=== PATIENT | female | born 1950 | race Caucasian/White ===

== ENCOUNTER 2018-08-25 12:43 | Emergency (ER) | payer MEDICARE, OTHER ==
[~2018-08-25] VITALS: Ht 162.6 cm; Wt 92.1 kg
[~2018-08-25 12:43] MED LIST: ALBU90OI INH; AMPI500 PO; Alph-E-Mixed400 UNIT PO; Augmentin 875-1 EACH PO; Bentyl10 MG PO; CALCIT950; CHOL10002 PO; CHRO200; CIPR500 PO; CODACE30 PO; CYCL10 PO; Calcium 600 MG1 EACH PO; DULO30 PO; FISH1000 PO; GABA300 PO; HYDACE5 PO; HYDACE5325 PO; HYDCHL12.5 PO; IBUP800 PO; IRON325 MG PO; Kristalose20 GM PO; LEVSOD150 PO; LEVSOD175 PO; LEVSOD88 PO; LOPE2C PO; META800 PO; METPRE4DP PO; MULVITMINE; NAPR375 PO; NAPR500 PO; Naprosyn500 MG PO; Norco 10-325 T1 EACH PO; Norco 5-325 Ta1 EACH PO; OXYACE5T PO; Omeprazole20 M1 PO; POTASSIUM; PRAZ2 PO; PROM25 PO; Prednisone20 MG PO; Prilosec Otc20 MG PO; SERT50 PO; SILVADENE CREAM; SULTRIDS PO; TRAZ50 PO; VENL25 PO; VENL75 PO; Valium5 MG PO; Ventolin5 MG/1 ML; [UNRECOGNIZED DRUG - OTHER]
[2018-08-25] MEDS ORDERED: Hydrocodone-Ap1 EA20 PO (13:04)
[2018-08-25] MEDS ORDERED: HYDPAM50 PO (13:04)
[2018-08-25] MEDS ORDERED: DOXE10 PO (13:04)
[2018-08-25] MEDS ORDERED: LEVO-T112 MCG (13:04)
== END 2018-08-25 15:16 | disposition home or self-care (01) ==
LOC: ER 12:43
DX: S09.90XA Unspecified injury of head, initial encounter (principal); S00.83XA Contusion of other part of head, initial encounter; S80.212A Abrasion, left knee, initial encounter; M79.674 Pain in right toe(s); E03.9 Hypothyroidism, unspecified; Z79.899 Other long term (current) drug therapy; Z23 Encounter for immunization; W01.0XXA Fall on same level from slipping, tripping and stumbling without subsequent striking against object, initial encounter
CPT/HCPCS: 29130; 70450; 70486; 72125; 73140; 73564; 73660; 90471; 90714; 99284-25

== ENCOUNTER → 2018-12-19 | Outpatient (CLI) | payer MEDICARE, OTHER ==
[~2018-12-19] MED LIST changes: +DOXE10 PO; +HYDPAM50 PO; +Hydrocodone-Ap1 EA20 PO; +LEVO-T112 MCG
== END ==
LOC: LAB SHORT 17:47 → LAB EV 17:47
DX: N39.0 Urinary tract infection, site not specified (principal)
CPT/HCPCS: 87077; 87086; 87186

== ENCOUNTER → 2019-03-06 | Outpatient (CLI) | payer MEDICARE, OTHER ==
[2019-03-06 18:51] LABS: BASOPHILS ABSOLUTE AUTO 0.03 K/mm3 (0.00-0.23); BASOPHILS PERCENT AUTO 1 % (0-2); EOSINOPHILS ABSOLUTE AUTO 0.11 K/mm3 (0.00-0.68); EOSINOPHILS PERCENT AUTO 2 % (0-6); Hematocrit 36.8 % (33.0-51.0); Hemoglobin 11.4 g/dL (11.5-16.0); IMMATURE GRAN ABSOLUTE AUTO 0.01 K/mm3 (0.00-0.10); IMMATURE GRAN PERCENT AUTO 0 % (0-1); LYMPHOCYTES ABSOLUTE AUTO 1.67 K/mm3 (0.84-5.20); LYMPHOCYTES PERCENT AUTO 32 % (21-46); MONOCYTES ABSOLUTE AUTO 0.44 K/mm3 (0.16-1.47); MONOCYTES PERCENT AUTO 8 % (4-13); Mean Corpuscular HGB 24.4 pg (26.0-34.0); Mean Corpuscular Volume 79 fL (80-100); Mean Platelet Volume 10.5 fL (9.1-12.4); NEUTROPHILS ABSOLUTE AUTO 3.03 K/mm3 (1.96-9.15); NEUTROPHILS PERCENT AUTO 57 % (41-73); Platelet Count 314 K/mm3 (150-400); RDW Coefficient Variation 15.1 % (11.7-14.2); RDW Standard Deviation 43.1 fL (35.1-46.3); Red Blood Cell Count 4.67 M/mm3 (3.80-5.20); White Blood Cell Count 5.29 K/mm3 (4.00-11.30)
[2019-03-06 19:16] LABS: Alanine Aminotransfer (ALT/SGP 23 U/L (12-78); Albumin, Blood 3.4 g/dL (3.4-5.0); Albumin/Globulin Ratio 0.9 (0.8-1.8); Alk Phos 156 U/L (40-126); Anion Gap 7 mmol/L (6-16); Aspartate Aminotrans (AST/SGOT 18 U/L (12-37); Bilirubin, Total 0.3 mg/dL (0.1-1.0); Blood Urea Nitrogen 21 mg/dL (8-24); Bun/Creatinine Ratio 21.9 (12.0-20.0); CO2, Blood 29 mmol/L (21-32); Calcium, Blood 8.7 mg/dL (8.5-10.1); Chloride, Blood 105 mmol/L (98-108); Creatinine, Blood 0.96 mg/dL (0.40-1.00); Globulin, Blood 3.7 g/dL (2.2-4.0); Glomerular Filtration Rate 58 (60-); Glucose, Blood 119 mg/dL (70-99); Potassium, Blood 3.9 mmol/L (3.5-5.5); Sodium, Blood 141 mmol/L (136-145); Thyroid Stimulating Hormone 0.078 uIU/mL (0.360-4.800); Total Protein, Blood 7.1 g/dL (6.4-8.2); Troponin I <0.017 ng/mL (0.000-0.040)
== END | disposition home or self-care (01) ==
LOC: LAB EV 18:45 → LAB SHORT 18:45
PROVIDERS: Physician Assistant
DX: I48.0 Paroxysmal atrial fibrillation (principal); R53.83 Other fatigue
CPT/HCPCS: 80053; 83880; 84439; 84443; 84481; 84484; 85025

== ENCOUNTER 2019-03-28 12:26 | Emergency (ER) | payer MEDICARE, OTHER ==
[~2019-03-28] VITALS: Ht 162.6 cm; Wt 98.4 kg
[2019-03-28 13:30] LABS: BASOPHILS ABSOLUTE AUTO 0.03 K/mm3 (0.00-0.23); BASOPHILS PERCENT AUTO 1 % (0-2); EOSINOPHILS ABSOLUTE AUTO 0.13 K/mm3 (0.00-0.68); EOSINOPHILS PERCENT AUTO 2 % (0-6); Hematocrit 39.6 % (33.0-51.0); Hemoglobin 11.7 g/dL (11.5-16.0); IMMATURE GRAN ABSOLUTE AUTO 0.01 K/mm3 (0.00-0.10); IMMATURE GRAN PERCENT AUTO 0 % (0-1); LYMPHOCYTES ABSOLUTE AUTO 1.94 K/mm3 (0.84-5.20); LYMPHOCYTES PERCENT AUTO 32 % (21-46); MONOCYTES ABSOLUTE AUTO 0.56 K/mm3 (0.16-1.47); MONOCYTES PERCENT AUTO 9 % (4-13); Mean Corpuscular HGB 23.6 pg (26.0-34.0); Mean Corpuscular HGB Conc 29.5 g/dL (31.5-36.5); Mean Corpuscular Volume 80 fL (80-100); Mean Platelet Volume 10.2 fL (9.1-12.4); NEUTROPHILS ABSOLUTE AUTO 3.41 K/mm3 (1.96-9.15); NEUTROPHILS PERCENT AUTO 56 % (41-73); Platelet Count 285 K/mm3 (150-400); RDW Coefficient Variation 15.4 % (11.7-14.2); RDW Standard Deviation 44.2 fL (35.1-46.3); Red Blood Cell Count 4.96 M/mm3 (3.80-5.20); White Blood Cell Count 6.08 K/mm3 (4.00-11.30)
[2019-03-28 13:42] LABS: International Normalized Ratio 2.85; Prothrombin Time Results 27.5 Sec (9.7-11.5)
[2019-03-28 13:52] LABS: Troponin I <0.015 ng/mL (0.000-0.040)
[2019-03-28 14:01] LABS: Alanine Aminotransfer (ALT/SGP 20 U/L (12-78); Albumin, Blood 3.5 g/dL (3.4-5.0); Alk Phos 157 U/L (50-136); Anion Gap 5 mmol/L (6-16); Aspartate Aminotrans (AST/SGOT 12 U/L (12-37); Bilirubin, Total 0.3 mg/dL (0.1-1.0); Blood Urea Nitrogen 20 mg/dL (8-24); Bun/Creatinine Ratio 27.8 (12.0-20.0); CO2, Blood 28 mmol/L (21-32); Calcium, Blood 8.7 mg/dL (8.5-10.1); Chloride, Blood 111 mmol/L (98-108); Creatinine, Blood 0.72 mg/dL (0.40-1.00); Globulin, Blood 3.5 g/dL (2.2-4.0); Glomerular Filtration Rate >60 (60-); Glucose, Blood 99 mg/dL (70-99); Potassium, Blood 3.9 mmol/L (3.5-5.5); Sodium, Blood 144 mmol/L (136-145)
== END 2019-03-28 17:15 | disposition home or self-care (01) ==
LOC: ER 12:26
PROVIDERS: Physician Assistant
DX: I48.91 Unspecified atrial fibrillation (principal); E03.9 Hypothyroidism, unspecified; Z79.899 Other long term (current) drug therapy; Z88.8 Allergy status to other drugs, medicaments and biological substances
CPT/HCPCS: 36415; 71046; 80053; 84484; 85025; 85610; 93005; 93010; 99285-25

== ENCOUNTER → 2020-02-21 | Outpatient (CLI) | payer MEDICARE, OTHER | END | disposition home or self-care (01) | LOC: LAB EV 12:00 → LAB SHORT 12:00 | DX: N39.0 Urinary tract infection, site not specified (principal) | CPT/HCPCS: 87077; 87086; 87186 ==

== ENCOUNTER → 2020-10-31 | Outpatient (CLI) | payer MEDICARE, OTHER ==
[~2020-10-31] MED LIST changes: +BUPROPION XL150 M1 PO; +CEFP200 PO; +HYDROCODONE-AC1 EAC7 PO; +METO100ER PO; +Nasal Spray30 M1; +WARF4 PO; +WARF5 PO
== END ==
LOC: LAB EV 12:54
DX: R82.90 Unspecified abnormal findings in urine (principal)
CPT/HCPCS: 87077; 87086; 87186

== ENCOUNTER 2020-12-05 19:43 | Emergency (ER) | payer MEDICARE, OTHER ==
[~2020-12-05] VITALS: Ht 162.6 cm; Wt 97.5 kg
[~2020-12-05 19:43] MED LIST changes: -BUPROPION XL150 M1 PO; -CEFP200 PO; -HYDROCODONE-AC1 EAC7 PO; -METO100ER PO; -Nasal Spray30 M1; -WARF4 PO; -WARF5 PO
[2020-12-05 20:16] LABS: BASOPHILS ABSOLUTE AUTO 0.03 K/mm3 (0.00-0.23); BASOPHILS PERCENT AUTO 1 % (0-2); EOSINOPHILS ABSOLUTE AUTO 0.19 K/mm3 (0.00-0.68); EOSINOPHILS PERCENT AUTO 4 % (0-6); Hematocrit 42.8 % (33.0-51.0); Hemoglobin 13.6 g/dL (11.5-16.0); IMMATURE GRAN ABSOLUTE AUTO 0.01 K/mm3 (0.00-0.10); IMMATURE GRAN PERCENT AUTO 0 % (0-1); LYMPHOCYTES ABSOLUTE AUTO 1.75 K/mm3 (0.84-5.20); LYMPHOCYTES PERCENT AUTO 36 % (21-46); MONOCYTES ABSOLUTE AUTO 0.47 K/mm3 (0.16-1.47); MONOCYTES PERCENT AUTO 10 % (4-13); Mean Corpuscular HGB 29.2 pg (26.0-34.0); Mean Corpuscular HGB Conc 31.8 g/dL (31.5-36.5); Mean Corpuscular Volume 92 fL (80-100); Mean Platelet Volume 10.4 fL (9.1-12.4); NEUTROPHILS ABSOLUTE AUTO 2.46 K/mm3 (1.96-9.15); NEUTROPHILS PERCENT AUTO 50 % (41-73); Platelet Count 246 K/mm3 (150-400); RDW Coefficient Variation 14.5 % (11.7-14.2); RDW Standard Deviation 48.6 fL (35.1-46.3); Red Blood Cell Count 4.66 M/mm3 (3.80-5.20); White Blood Cell Count 4.91 K/mm3 (4.00-11.30)
[2020-12-05] MEDS ORDERED: WARF4 PO (20:17)
[2020-12-05] MEDS ORDERED: WARF5 PO (20:17)
[2020-12-05 20:31] LABS: International Normalized Ratio 2.01; Prothrombin Time Results 20.7 Sec (9.7-11.5)
[2020-12-05 20:33] LABS: Alanine Aminotransfer (ALT/SGP 34 U/L (12-78); Albumin, Blood 3.6 g/dL (3.4-5.0); Albumin/Globulin Ratio 1.2 (0.8-1.8); Alk Phos 118 U/L (50-136); Anion Gap 6 mmol/L (6-16); Aspartate Aminotrans (AST/SGOT 27 U/L (12-37); Bilirubin, Total 0.5 mg/dL (0.1-1.0); Blood Urea Nitrogen 13 mg/dL (8-24); Bun/Creatinine Ratio 16.7 (12.0-20.0); CO2, Blood 27 mmol/L (21-32); Calcium, Blood 8.7 mg/dL (8.5-10.1); Chloride, Blood 111 mmol/L (98-108); Creatinine, Blood 0.78 mg/dL (0.40-1.00); Glomerular Filtration Rate >60 (60-); Glucose, Blood 103 mg/dL (70-99); Potassium, Blood 3.9 mmol/L (3.5-5.5); Sodium, Blood 144 mmol/L (136-145); Total Protein, Blood 6.6 g/dL (6.4-8.2)
[2020-12-05 21:45] LABS: Source, Urine Clean Catch
[2020-12-05 21:47] LABS: Bilirubin, Urine Neg (Neg); Blood, Urine Neg (Neg); Glucose Qualitative, Urine Neg (Neg); Ketones, Urine Neg (Neg); Leukocyte Esterase, Urine 2+ (Neg); Nitrite, Urine Pos (Neg); Protein, Urine Neg (Neg); Urobilinogen, Urine 1+ (Normal)
[2020-12-05 21:55] LABS: Appearance, Urine Hazy (Clear); Color, Urine Yellow (P-Yellow)
[2020-12-05 21:56] LABS: Bacteria Many /hpf; Red Blood Cells, Urine Not Seen /hpf (0-2); Squamous Epithelial Cells Rare /hpf (Few); White Blood Cells, Urine 50-100 /hpf (0-5)
[2020-12-05] MEDS ORDERED: CEFP200 PO (22:18)
[2020-12-06] MEDS ORDERED: Nasal Spray30 M1 (10:59)
== END 2020-12-05 22:36 | disposition home or self-care (01) ==
LOC: ER 19:43
PROVIDERS: Emergency Medicine
DX: R04.2 Hemoptysis (principal); R91.1 Solitary pulmonary nodule; N39.0 Urinary tract infection, site not specified; E03.9 Hypothyroidism, unspecified; I48.91 Unspecified atrial fibrillation; J44.9 Chronic obstructive pulmonary disease, unspecified; Z79.01 Long term (current) use of anticoagulants; Z88.1 Allergy status to other antibiotic agents; Z79.899 Other long term (current) drug therapy
CPT/HCPCS: 36415; 71260; 80053; 81001; 83880; 84484; 85025; 85610; 85730; 87077; 87086; 87186; 93005; 93010; 99284-25; A9270; Q9967

== ENCOUNTER 2020-12-06 08:39 | Emergency (ER) | payer MEDICARE, OTHER ==
[~2020-12-06] VITALS: Ht 162.6 cm; Wt 97.2 kg
[~2020-12-06 08:39] MED LIST changes: +CEFP200 PO; +WARF4 PO; +WARF5 PO
[2020-12-06 09:25] LABS: BASOPHILS ABSOLUTE AUTO 0.04 K/mm3 (0.00-0.23); BASOPHILS PERCENT AUTO 1 % (0-2); EOSINOPHILS ABSOLUTE AUTO 0.18 K/mm3 (0.00-0.68); EOSINOPHILS PERCENT AUTO 3 % (0-6); Hemoglobin 13.3 g/dL (11.5-16.0); IMMATURE GRAN ABSOLUTE AUTO 0.02 K/mm3 (0.00-0.10); IMMATURE GRAN PERCENT AUTO 0 % (0-1); LYMPHOCYTES ABSOLUTE AUTO 1.41 K/mm3 (0.84-5.20); LYMPHOCYTES PERCENT AUTO 22 % (21-46); MONOCYTES ABSOLUTE AUTO 0.48 K/mm3 (0.16-1.47); MONOCYTES PERCENT AUTO 8 % (4-13); Mean Corpuscular HGB 28.6 pg (26.0-34.0); Mean Corpuscular HGB Conc 30.9 g/dL (31.5-36.5); Mean Corpuscular Volume 93 fL (80-100); Mean Platelet Volume 10.7 fL (9.1-12.4); NEUTROPHILS ABSOLUTE AUTO 4.17 K/mm3 (1.96-9.15); NEUTROPHILS PERCENT AUTO 66 % (41-73); Platelet Count 240 K/mm3 (150-400); RDW Coefficient Variation 14.5 % (11.7-14.2); Red Blood Cell Count 4.65 M/mm3 (3.80-5.20)
[2020-12-06 09:41] LABS: International Normalized Ratio 1.87; Prothrombin Time Results 19.3 Sec (9.7-11.5)
[2020-12-06 09:43] LABS: Alanine Aminotransfer (ALT/SGP 32 U/L (12-78); Albumin, Blood 3.2 g/dL (3.4-5.0); Alk Phos 103 U/L (50-136); Anion Gap 5 mmol/L (6-16); Aspartate Aminotrans (AST/SGOT 22 U/L (12-37); Bilirubin, Total 0.4 mg/dL (0.1-1.0); Blood Urea Nitrogen 13 mg/dL (8-24); CO2, Blood 28 mmol/L (21-32); Calcium, Blood 8.2 mg/dL (8.5-10.1); Chloride, Blood 115 mmol/L (98-108); Creatinine, Blood 0.76 mg/dL (0.40-1.00); Globulin, Blood 3.1 g/dL (2.2-4.0); Glomerular Filtration Rate >60 (60-); Glucose, Blood 91 mg/dL (70-99); Sodium, Blood 148 mmol/L (136-145); Total Protein, Blood 6.3 g/dL (6.4-8.2)
[2020-12-06 09:53] LABS: Troponin I <0.015 ng/mL (0.000-0.040)
[2020-12-06 10:25] LABS: Source, Urine Clean Catch
[2020-12-06 10:28] LABS: Bilirubin, Urine Neg (Neg); Blood, Urine 3+ (Neg); Color, Urine Yellow (P-Yellow); Glucose Qualitative, Urine Neg (Neg); Ketones, Urine Neg (Neg); Leukocyte Esterase, Urine 3+ (Neg); Nitrite, Urine Neg (Neg); Protein, Urine Neg (Neg); Specific Gravity, Urine 1.015 (1.003-1.022); Urobilinogen, Urine NORM (Normal)
[2020-12-06 10:37] LABS: Appearance, Urine Hazy (Clear)
[2020-12-06 10:39] LABS: Bacteria Rare /hpf; Squamous Epithelial Cells Few /hpf (Few)
[2020-12-06] MEDS ORDERED: Nasal Spray30 M1 (10:59)
== END 2020-12-06 11:51 | disposition home or self-care (01) ==
LOC: ER 08:39
PROVIDERS: Physician Assistant
DX: N39.0 Urinary tract infection, site not specified (principal); R04.0 Epistaxis; E03.9 Hypothyroidism, unspecified; J44.9 Chronic obstructive pulmonary disease, unspecified; I48.91 Unspecified atrial fibrillation; Z79.899 Other long term (current) drug therapy; Z79.01 Long term (current) use of anticoagulants; Z88.1 Allergy status to other antibiotic agents
CPT/HCPCS: 36415; 80053; 81001; 83880; 84443; 84484; 85025; 85610; 87086; 93005; 93010; 96361; 96365; 99283-25; A9270; J0696; J7120

== ENCOUNTER → 2020-12-26 | Outpatient (CLI) | payer MEDICARE, OTHER ==
[~2020-12-26] MED LIST changes: +BUPROPION XL150 M1 PO; +HYDROCODONE-AC1 EAC7 PO; +METO100ER PO; +Nasal Spray30 M1
== END ==
LOC: LAB SHORT 17:35 → LAB EV 17:35
DX: N39.0 Urinary tract infection, site not specified (principal)
CPT/HCPCS: 87077; 87086; 87186

== ENCOUNTER 2021-04-24 18:13 | Emergency (ER) | payer MEDICARE, OTHER ==
[~2021-04-24] VITALS: Ht 162.6 cm; Wt 86.2 kg
[~2021-04-24 18:13] MED LIST changes: -BUPROPION XL150 M1 PO; -HYDROCODONE-AC1 EAC7 PO; -METO100ER PO
[2021-04-24 18:37] LABS: BASOPHILS ABSOLUTE AUTO 0.04 K/mm3 (0.00-0.23); BASOPHILS PERCENT AUTO 1 % (0-2); EOSINOPHILS ABSOLUTE AUTO 0.19 K/mm3 (0.00-0.68); EOSINOPHILS PERCENT AUTO 3 % (0-6); Hematocrit 41.6 % (33.0-51.0); IMMATURE GRAN ABSOLUTE AUTO 0.02 K/mm3 (0.00-0.10); IMMATURE GRAN PERCENT AUTO 0 % (0-1); LYMPHOCYTES ABSOLUTE AUTO 1.81 K/mm3 (0.84-5.20); LYMPHOCYTES PERCENT AUTO 32 % (21-46); MONOCYTES ABSOLUTE AUTO 0.51 K/mm3 (0.16-1.47); MONOCYTES PERCENT AUTO 9 % (4-13); Mean Corpuscular HGB 28.3 pg (26.0-34.0); Mean Corpuscular HGB Conc 31.3 g/dL (31.5-36.5); Mean Corpuscular Volume 90 fL (80-100); Mean Platelet Volume 10.8 fL (9.1-12.4); NEUTROPHILS ABSOLUTE AUTO 3.16 K/mm3 (1.96-9.15); NEUTROPHILS PERCENT AUTO 55 % (41-73); Platelet Count 288 K/mm3 (150-400); RDW Coefficient Variation 13.7 % (11.7-14.2); RDW Standard Deviation 45.3 fL (35.1-46.3); White Blood Cell Count 5.73 K/mm3 (4.00-11.30)
[2021-04-24 18:52] LABS: International Normalized Ratio 3.2; Prothrombin Time Results 32.4 Sec (9.7-11.5)
[2021-04-24 19:00] LABS: Alanine Aminotransfer (ALT/SGP 27 U/L (12-78); Albumin, Blood 3.7 g/dL (3.4-5.0); Albumin/Globulin Ratio 1.1 (0.8-1.8); Alk Phos 120 U/L (50-136); Anion Gap 4 mmol/L (6-16); Aspartate Aminotrans (AST/SGOT 22 U/L (12-37); Bilirubin, Total 0.5 mg/dL (0.1-1.0); Blood Urea Nitrogen 20 mg/dL (8-24); Bun/Creatinine Ratio 21.9 (12.0-20.0); CO2, Blood 29 mmol/L (21-32); Calcium, Blood 9.1 mg/dL (8.5-10.1); Chloride, Blood 108 mmol/L (98-108); Creatinine, Blood 0.91 mg/dL (0.40-1.00); Globulin, Blood 3.4 g/dL (2.2-4.0); Glomerular Filtration Rate >60 (60-); Glucose, Blood 95 mg/dL (70-99); Potassium, Blood 3.9 mmol/L (3.5-5.5); Sodium, Blood 141 mmol/L (136-145); Total Protein, Blood 7.1 g/dL (6.4-8.2); Troponin I <0.015 ng/mL (0.000-0.040)
[2021-04-24] MEDS ORDERED: BUPROPION XL150 M1 PO (21:40)
[2021-04-24] MEDS ORDERED: METO100ER PO (21:41)
[2021-04-24] MEDS ORDERED: HYDROCODONE-AC1 EAC7 PO (21:41)
== END 2021-04-24 22:48 | disposition home or self-care (01) ==
LOC: ER 18:13
PROVIDERS: Physician Assistant
DX: I48.91 Unspecified atrial fibrillation (principal); E03.9 Hypothyroidism, unspecified; J44.9 Chronic obstructive pulmonary disease, unspecified; Z79.01 Long term (current) use of anticoagulants; Z88.8 Allergy status to other drugs, medicaments and biological substances; Z79.899 Other long term (current) drug therapy
CPT/HCPCS: 36415; 71046; 80053; 83880; 84484; 85025; 85610; 93005; 93010; 99285-25

== ENCOUNTER 2021-12-15 10:07 | Day surgery (SDC) | payer MEDICARE, OTHER ==
[~2021-12-15 10:07] MED LIST changes: +ATOR40TA PO; +Aspir 8181 MG PO; +BUPROPION XL150 M1 PO; +FAMO20 PO; +HYDROCODONE-AC1 EAC7 PO; +LEVSOD25 PO; +METO100ER PO; +PRAZ5 PO
[2021-12-15] MEDS ORDERED: XARELTO20 MG PO (11:30)
[2021-12-15] MEDS ORDERED: NEURONTIN300 MG PO (11:38)
[2021-12-15] MEDS ORDERED: HYDHCL25 PO (11:40)
[2021-12-15] MEDS ORDERED: LEVSOD112 PO (11:42)
[2021-12-15] MEDS ORDERED: ATOR40TA PO (11:43)
[2021-12-15] MEDS ORDERED: METO100ER PO (11:43)
[2021-12-15] MEDS ORDERED: PRAZ5 PO (11:43)
--- NOTE | 2021-12-15 12:43 | NUR ---
DR STEWART IN TO TALK TO PT, PT PREPPED FOR L/R CATH, 22G L HAND IV STARTED BY MARISELA Mclean RN, SISTER WILL COME BACK THIS AFTERNOON, PT TAKEN TO [employer]
--- NOTE | 2021-12-15 14:15 | NUR ---
PT BACK FROM [employer], DR STEWART DISCUSSING PLAN OF CARE, PT EATING LUNCH, R RADIAL TR SITE AND R BRACHIAL VENOUS SITE STABLE, INITIAL ADMIN SCREENING [employer] TOOL NOT WORKING AT THIS TIME, PT STABLE AND WILL DC AROUND 1700
== END 2021-12-15 17:00 | disposition home or self-care (01) ==
LOC: MHTC 10:07
DX: R07.9 Chest pain, unspecified (principal); I48.19 Other persistent atrial fibrillation; R00.2 Palpitations; I42.0 Dilated cardiomyopathy; R06.02 Shortness of breath; E03.9 Hypothyroidism, unspecified; E11.9 Type 2 diabetes mellitus without complications; I27.20 Pulmonary hypertension, unspecified; I08.1 Rheumatic disorders of both mitral and tricuspid valves; I20.0 Unstable angina; I50.9 Heart failure, unspecified; Z88.8 Allergy status to other drugs, medicaments and biological substances
CPT/HCPCS: 93460; 99152; 99153; C1769; C1887; C1894; J1644; J2250; J3010; J7030; J7050; Q9967

== ENCOUNTER 2022-08-12 08:36 | Emergency (ER) | payer MEDICARE, OTHER ==
[~2022-08-12] VITALS: Ht 165.1 cm; Wt 74.8 kg
[~2022-08-12 08:36] MED LIST changes: +HYDHCL25 PO; +LEVSOD112 PO; +NEURONTIN300 MG PO; +XARELTO20 MG PO
[2022-08-12 09:10] LABS: BASOPHILS ABSOLUTE AUTO 0.04 K/mm3 (0.00-0.23); BASOPHILS PERCENT AUTO 1 % (0-2); EOSINOPHILS ABSOLUTE AUTO 0.08 K/mm3 (0.00-0.68); EOSINOPHILS PERCENT AUTO 2 % (0-6); Hematocrit 42.1 % (33.0-51.0); Hemoglobin 13.5 g/dL (11.5-16.0); IMMATURE GRAN ABSOLUTE AUTO 0.01 K/mm3 (0.00-0.10); IMMATURE GRAN PERCENT AUTO 0 % (0-1); LYMPHOCYTES ABSOLUTE AUTO 1.19 K/mm3 (0.84-5.20); LYMPHOCYTES PERCENT AUTO 29 % (21-46); MONOCYTES ABSOLUTE AUTO 0.28 K/mm3 (0.16-1.47); MONOCYTES PERCENT AUTO 7 % (4-13); Mean Corpuscular HGB 28.7 pg (26.0-34.0); Mean Corpuscular HGB Conc 32.1 g/dL (31.5-36.5); Mean Corpuscular Volume 90 fL (80-100); Mean Platelet Volume 10.5 fL (9.1-12.4); NEUTROPHILS ABSOLUTE AUTO 2.53 K/mm3 (1.96-9.15); NEUTROPHILS PERCENT AUTO 61 % (41-73); Platelet Count 205 K/mm3 (150-400); RDW Coefficient Variation 13.7 % (11.7-14.2); RDW Standard Deviation 45.2 fL (35.1-46.3); White Blood Cell Count 4.13 K/mm3 (4.00-11.30)
[2022-08-12] MEDS ORDERED: FAMO20 (09:24)
[2022-08-12] MEDS ORDERED: LOSARTAN POTASS25 M2 PO (09:25)
[2022-08-12] MEDS ORDERED: FAMO20 PO (09:27)
[2022-08-12] MEDS ORDERED: ATOR40TA PO (09:27)
[2022-08-12] MEDS ORDERED: XARELTO20 M1 PO (09:28)
[2022-08-12] MEDS ORDERED: HYDROCODONE-AC1 EAC7 PO (09:29)
[2022-08-12 09:30] LABS: Albumin, Blood 3.5 g/dL (3.4-5.0); Albumin/Globulin Ratio 1.1 (0.8-1.8); Bilirubin, Total 0.6 mg/dL (0.1-1.0); Calcium, Blood 8.6 mg/dL (8.5-10.1); Creatinine, Blood 0.91 mg/dL (0.40-1.00); Globulin, Blood 3.1 g/dL (2.2-4.0); Potassium, Blood 3.8 mmol/L (3.5-5.5); Total Protein, Blood 6.6 g/dL (6.4-8.2)
[2022-08-12] MEDS ORDERED: DIGOX125 MC1 PO (09:30)
[2022-08-12] MEDS ORDERED: SYNTHROID75 MCG PO (09:30)
[2022-08-12] MEDS ORDERED: DULOXETINE HCL60 M1 PO (09:30)
[2022-08-12] MEDS ORDERED: DOXE10 PO (09:31)
[2022-08-12] MEDS ORDERED: Ventolin/Prove6.7 GM INH (09:31)
[2022-08-12 09:56] LABS: Magnesium, Blood 1.6 mg/dL (1.6-2.4); Thyroid Stimulating Hormone 1.85 uIU/mL (0.360-4.800)
[2022-08-12 10:07] LABS: Digoxin (Lanoxin) 0.13 ug/mL (0.80-2.00)
[2022-08-12] MEDS ORDERED: METO25ER PO (12:47)
== END 2022-08-12 13:03 | disposition home or self-care (01) ==
LOC: ER 08:36
PROVIDERS: Emergency Medicine; Student in an Organized Health Care Education/Training Program
DX: R07.9 Chest pain, unspecified (principal); I48.91 Unspecified atrial fibrillation; E03.9 Hypothyroidism, unspecified; J44.9 Chronic obstructive pulmonary disease, unspecified; Z88.8 Allergy status to other drugs, medicaments and biological substances; Z79.02 Long term (current) use of antithrombotics/antiplatelets; Z79.899 Other long term (current) drug therapy; Z79.890 Hormone replacement therapy
CPT/HCPCS: 36415; 80053; 80162; 83735; 83880; 84443; 84484; 85025; 93005; 93010; 96374; 99285-25; A9270; J3010

== ENCOUNTER 2023-02-03 15:19 | Emergency (ER) | payer OTHER, MEDICARE ==
[~2023-02-03] VITALS: Ht 162.6 cm; Wt 70.3 kg
[~2023-02-03 15:19] MED LIST changes: +DIGOX125 MC1 PO; +DULOXETINE HCL60 M1 PO; +FAMO20; +LOSARTAN POTASS25 M2 PO; +METO25ER PO; +SYNTHROID75 MCG PO; +Ventolin/Prove6.7 GM INH; +XARELTO20 M1 PO
[2023-02-03] MEDS ORDERED: Percocet 5-3251 EACH PO (17:46)
[2023-02-05] MEDS ORDERED: HYDMOR2 PO (23:02)
== END 2023-02-03 21:00 | disposition home or self-care (01) ==
LOC: ER 15:19
DX: S82.841A Displaced bimalleolar fracture of right lower leg, initial encounter for closed fracture (principal); E03.9 Hypothyroidism, unspecified; J44.9 Chronic obstructive pulmonary disease, unspecified; I48.91 Unspecified atrial fibrillation; Z88.8 Allergy status to other drugs, medicaments and biological substances; Z79.899 Other long term (current) drug therapy; Z79.890 Hormone replacement therapy; Z79.01 Long term (current) use of anticoagulants; W01.0XXA Fall on same level from slipping, tripping and stumbling without subsequent striking against object, initial encounter
CPT/HCPCS: 27810; 36415; 73600; 96374-59; 99152; 99284-25; J1170; J2704; J7030

== ENCOUNTER 2023-09-07 12:25 | Emergency (ER) | payer OTHER, MEDICARE ==
[~2023-09-07] VITALS: Ht 162.6 cm; Wt 77.6 kg
[~2023-09-07 12:25] MED LIST changes: +HYDMOR2 PO; +Percocet 5-3251 EACH PO
[2023-09-07 12:34] VITALS: BP 135/82
[2023-09-07] MEDS ORDERED: CLIN150 PO (14:11)
== END 2023-09-07 14:20 | disposition home or self-care (01) ==
LOC: ER 12:25
DX: L03.116 Cellulitis of left lower limb (principal); Z88.1 Allergy status to other antibiotic agents; Z79.890 Hormone replacement therapy; Z79.899 Other long term (current) drug therapy; Z79.01 Long term (current) use of anticoagulants; Z86.14 Personal history of Methicillin resistant Staphylococcus aureus infection
CPT/HCPCS: 93971; 99283-25

== ENCOUNTER → 2024-08-15 | Outpatient (CLI) | payer MEDICARE ==
[~2024-08-15] MED LIST changes: +CLIN150 PO
== END ==
LOC: LAB 15:24 → LAB SHORT 15:24
DX: L72.3 Sebaceous cyst (principal); L08.9 Local infection of the skin and subcutaneous tissue, unspecified
CPT/HCPCS: 87070; 87205

== ENCOUNTER 2024-09-14 07:46 | Day surgery (SDC) | payer MEDICARE ==
[~2024-09-14] VITALS: Ht 162.6 cm; Wt 86.0 kg
[~2024-09-14 07:46] MED LIST changes: +CeFAZolin Sodium 2,000 MG VIAL ONE; +Lactated Ringer's 1,000 ML IV ONE; +Lidocaine HCl/Pf 1% 5 ML VIAL ONE; +NS 50 ML IV ONE
[2024-09-14] MEDS ORDERED: SPIR25 PO (08:16)
[2024-09-14] MEDS ORDERED: ELIQUIS5 M2 PO (08:16)
[2024-09-14] MEDS ORDERED: Budeprion Xl300 MG PO (08:17)
[2024-09-14] MEDS ORDERED: TOPI25 PO (08:17)
[2024-09-14] MEDS ORDERED: HYDPAM25 PO (08:18)
[2024-09-14] MEDS ORDERED: GABA400 PO (08:19)
[2024-09-14] MEDS ORDERED: FentaNYL Citrate 50 MCG/ML 2 ML Injection ONE (08:26)
[2024-09-14] MEDS ORDERED: propofoL 20 ML IV ONE (08:26)
[2024-09-14] MEDS ORDERED: Lactated Ringer's 1,000 ML IV ONE (08:51)
[2024-09-14] MEDS ORDERED: Ondansetron HCl 2 MG / ML 2ML Vial ONE ×2 (09:14→10:39)
[2024-09-14] MEDS ORDERED: Dexamethasone Sod Phos 10 MG/ML 1ML VIAL ONE (09:14)
[2024-09-14] MEDS ORDERED: Bupivacaine 0.5% HCl 5 MG/ML 30MLVIAL INJ ONE (09:29)
[2024-09-14] MEDS ORDERED: Labetalol HCL 5 MG/ML 4ML Injection (Single Dose) ONE (09:32)
[2024-09-14] MEDS ORDERED: HYDROcodone 5-APAP 325 TAB ONE (10:12)
[2024-09-14] MEDS ORDERED: HYDROmorphone HCl/Pf 1MG SYR ONE (10:14)
[2024-09-14 10:23] VITALS: BP 140/96
--- NOTE | 2024-09-14 10:44 | NUR ---
09/14/24 1044 Shannan Hay PT UP TO RECLINER, SISTER IS AT THE SIDE OF RECLINER. PT IS ABLE TO TOLERATE FLUIDS AND SNACKS JUST FINE. PAIN MEDICATION GIVEN VIA IV. IV ZOFRAN GIVEN FOR UPSET STOMACH.
== END 2024-09-14 11:26 | disposition home or self-care (01) ==
LOC: ORSCSDS 07:46
PROVIDERS: Surgery
PROC: 0HBCXZX Excision of Left Upper Arm Skin, External Approach, Diagnostic (ICD-10-PCS; principal; 2024-09-14 09:00)
DX: L72.0 Epidermal cyst (principal); I10 Essential (primary) hypertension; I48.91 Unspecified atrial fibrillation; Z79.01 Long term (current) use of anticoagulants; J44.9 Chronic obstructive pulmonary disease, unspecified; E03.9 Hypothyroidism, unspecified; G47.33 Obstructive sleep apnea (adult) (pediatric); F41.9 Anxiety disorder, unspecified; F32.A Depression, unspecified; Z79.899 Other long term (current) drug therapy; Z68.33 Body mass index [BMI] 33.0-33.9, adult
CPT/HCPCS: 82947; 88304; A9270; J0690; J1100; J1170; J1171; J2001; J2003; J2405; J2704; J3010; J7120